=== PATIENT | female | born 1935 | race Caucasian/White ===

== ENCOUNTER 2017-03-18 15:33 | Emergency (ER) | payer MEDICARE, OTHER ==
--- NOTE | 2017-03-18 16:38 | ED Physician Documentation ---
PD HPI FOCAL NEURO - Stated complaint Stated Complaint: STROKE LIKE SYMPTOMS - Chief complaint Chief Complaint: Neuro - History obtained from History obtained from: Patient, Family - History of Present Illness Timing - onset: Other (Relatively healthy 81-year-old woman with history of hypertension. She has had 3 episodes today where she was speaking word salad briefly and then stared off into space. During 1 of the episodes she said she had chills. These episodes lasted at most minutes. She is amnestic to the events themselves. She feels okay now but does do admit to urinary frequency.) Review of Systems Constitutional: reports: Chills. 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 - Present Medications Home Medications: Ambulatory Orders Medication Instructions Recorded Confirmed Acetaminophen [Tylenol] 2 tab PO Q6HR PRN 05/14/16 03/18/17 Ascorbic Acid [Vitamin C] 2,000 tab PO DAILY 05/14/16 03/18/17 Gemfibrozil [Lopid] 1 tab PO DAILY 05/14/16 03/18/17 Multivitamin [Multivitamins] 1 cap PO DAILY 05/14/16 03/18/17 Omeprazole [PriLOSEC] 1 cap PO DAILY 05/14/16 03/18/17 Verapamil ER [Calan SA] 180 mg PO DAILY 05/14/16 03/18/17 Levofloxacin [Levaquin] 250 mg PO DAILY #3 tablet 03/18/17 Losartan [Cozaar] 25 mg PO DAILY 03/18/17 03/18/17 - Allergies Allergies/Adverse Reactions: Allergies Allergy/AdvReac Type Severity Reaction Status Date / Time Penicillins Allergy Hives Verified 05/14/16 01:12 Sulfa (Sulfonamide Allergy Hives Verified 05/14/16 01:12 Antibiotics) - Social History Does the pt smoke?: No Smoking Status: Never smoker Does the pt drink ETOH?: No Does the pt have substance abuse?: No - Immunizations Immunizations are current?: Yes PD ED PE NORMAL - Vitals Vital signs reviewed: Yes (Initial pulse oximetry was documented erroneously) - General General: Alert and oriented X 3, No acute distress - HEENT HEENT: PERRL, EOMI, Other (She has a left facial droop with periorbital spasm which she says is chronic and she has received Botox injections for.) - Neck Neck: Supple, no meningeal sign, No bony TTP - Cardiac Cardiac: RRR, No murmur - Respiratory Respiratory: No respiratory distress, Clear bilaterally - Abdomen Abdomen: Soft, Non tender - Derm Derm: Normal color, Warm and dry - Extremities Extremities: No deformity, No tenderness to palpate - Neuro Neuro: Alert and oriented X 3, No motor deficit, No sensory deficit, Normal speech - Psych Psych: Normal mood, Normal affect NIHSS - Time Time: 16:25 - Level of Consciousness Level of consciousness: (0) Alert, Keenly responsive LOC Questions: (0) Answers both Q's correct LOC Commands: (0) Performs both correctly - Gaze Best Gaze: (0) Normal - Visual Visual: (0) No loss - Facial Palsy Facial Palsy: (0) Normal, symmetrical movement (She has a pretty significant facial droop on the left with periorbital spasm but this is all chronic so I am documenting it is 0.) - Motor Arms (both separate) Motor Arm (right): (0) No drift Motor Arm (left): (0) No drift - Motor Legs (both separate) Motor Leg (right): (0) No drift Motor Leg (left): (0) No drift - Limb Ataxia Limb Ataxia: (0) Absent - Sensory Sensory: (0) Normal - Best Language Best Language: (0) No aphasia - Dysarthria Dysarthria: (0) Normal - Extinction and Inattention (formally neg Extinction and inattention: (0) No abnormality - Total Score/Results Total Score/Result: 0 Results - Vitals Vitals: Vital Signs - 24 hr 03/18/17 03/18/17 15:36 16:20 Temperature 36.7 C Heart Rate 83 Respiratory 20 Rate Blood Pressure 133/70 H O2 Saturation 81 L 96 Oxygen O2 Source Room air - EKG (time done) 1708 Rate: Rate (enter#) (74) Rhythm: NSR [place]: Normal Intervals: Normal PA QRS: Normal Ischemia: Normal ST segments Computer interpretation: Agree with computer - Labs Labs: Laboratory Tests 03/18/17 03/18/17 03/18/17 16:41 17:04 17:04 WBC 7.0 RBC 4.53 Hgb 13.0 Hct 37.5 MCV 82.7 MCH 28.6 MCHC 34.6 RDW 13.3 Plt Count 116 L MPV 8.4 Neut # 5.1 Lymph # 1.3 L Rice # 0.4 Eos # 0.1 Baso # 0.1 Absolute Nucleated RBC 0.00 Nucleated RBCs 0.0 Sodium 135 Potassium 4.4 Chloride 99 L Carbon Dioxide 28 Anion Gap 8.0 BUN 24 H Creatinine 0.7 Estimated GFR (MDRD) 80 L Glucose 112 H Calcium 9.5 Total Bilirubin 0.3 AST 19 ALT 25 Alkaline Phosphatase 61 Total Protein 7.2 Albumin 4.0 Globulin 3.2 Albumin/Globulin Ratio 1.3 Lipase 28 Urine Color YELLOW Urine Clarity CLEAR Urine pH 6.0 Ur Specific [place] 1.020 Urine Protein NEGATIVE Urine Glucose (UA) NEGATIVE Urine Ketones NEGATIVE Urine Occult Blood NEGATIVE Urine Nitrite NEGATIVE Urine Bilirubin NEGATIVE Urine Urobilinogen 0.2 (NORMAL) Ur Leukocyte Esterase SMALL H Ur Microscopic Review NOT INDICATED Urine Culture Comments NOT INDICATED PD MEDICAL DECISION MAKING - ED course ED course: 81-year-old woman with a few episodes of word salad today and amnesia. Normal exam here. Workup demonstrates mild evidence of UTI. She strongly wanted to go home. She lives quite close to the hospital. agreeable and will bring her back for further episodes. Encouraged follow-up with a neurologist. Departure - Departure Disposition: 01 Home, Self Care Clinical Impression: Cystitis Altered mental status Qualifiers: Altered mental status type: disorientation Qualified Code(s): R41.0 - Disorientation, unspecified Condition: Good Record reviewed to determine appropriate education?: Yes Instructions: ED UTI Cystitis Female Follow-Up: Molina Barrios MD [Physician No Access] - Rajinder Norwood MD [Physician No Access] - Sara Gee MD [Credentialed Staff Provider] - Prescriptions: Levofloxacin [Levaquin] 250 mg PO DAILY #3 tablet Comments: RETURN IF WORSE OR FOR RECURRENT SYMPTOMS. FOLLOWUP WITH A NEUROLOGIST CARLOS
[2017-03-18 17:10] LABS: BASOPHILS # (AUTO) 0.1 10^3/uL (0.0-0.1); BASOPHILS % (AUTO) 0.9 %; EOSINOPHILS # (AUTO) 0.1 10^3/uL (0.0-0.7); HCT - HEMATOCRIT 37.5 % (37.0-47.0); LYMPHOCYTES # (AUTO) 1.3 10^3/uL (1.5-3.5); LYMPHOCYTES % (AUTO) 18.1 %; MEAN CORPUSCULAR HEMOGLOBIN 28.6 pg (27.0-31.0); MEAN CORPUSCULAR HGB CONC 34.6 g/dL (32.0-36.0); MEAN CORPUSCULAR VOLUME 82.7 fL (81.0-99.0); MEAN PLATELET VOLUME 8.4 fL (7.9-10.8); MONOCYTES # (AUTO) 0.4 10^3/uL (0.0-1.0); MONOCYTES % (AUTO) 5.6 %; NEUTROPHILS # (AUTO) 5.1 10^3/uL (1.5-6.6); NEUTROPHILS % (AUTO) 73.4 %; RED BLOOD COUNT 4.53 10^6/uL (4.20-5.40); RED CELL DISTRIBUTION WIDTH 13.3 % (12.0-15.0)
[2017-03-18 17:12] LABS: BILIRUBIN,URINE NEGATIVE (NEGATIVE)
[2017-03-18 17:14] LABS: UA CHARGE (STRIP ONLY) YES
[2017-03-18 17:17] LABS: UR CULTURE IF IND NOT INDICATED
--- NOTE | 2017-03-18 17:20 | CT Preliminary Report ---
Exam: CT Head W/O IMPRESSION: Generalized age-related cortical atrophic changes without evidence of acute intracranial abnormality. [facility] SITE ID: [id number]
[2017-03-18 17:23] LABS: ALBUMIN/GLOBULIN RATIO 1.3 (1.0-2.2); BILIRUBIN,TOTAL 0.3 mg/dL (0.2-1.0); CALCIUM 9.5 mg/dL (8.5-10.3); CREATININE 0.7 mg/dL (0.4-1.0); POTASSIUM 4.4 mmol/L (3.5-5.0); TOTAL PROTEIN 7.2 g/dL (6.7-8.2)
--- NOTE | 2017-03-18 17:23 | CT Report ---
EXAM: CT HEAD EXAM DATE: 03/18/2017 04:56 PM. CLINICAL HISTORY: Altered, ?TIAs. COMPARISON: None. TECHNIQUE: Multiaxial CT images were obtained from the foramen magnum to the vertex. IV contrast: Non e. Reformats: Coronal. In accordance with CT protocol optimization, one or more of the following dose reduction techniques w ere utilized for this exam: automated exposure control, adjustment of mA and/or KV based on patient s ize, or use of iterative reconstructive technique. FINDINGS: Parenchyma: No intraparenchymal hemorrhage. No evidence of mass, midline shift, or CT findings of acu te infarction. Stephens-white differentiation is distinct. 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 Extraaxial Spaces: Normal for age. No subdural or epidural collections identified. Ventricles: The ventricles and cortical sulci are enlarged, consistent with age-related tissue loss. Sinuses: Imaged paranasal sinuses, orbits, and mastoids show no significant abnormality. Bones: No evidence of fracture or calvarial defect. Other: Diffuse chronic microangiopathic white matter changes are evident. IMPRESSION: Generalized age-related cortical atrophic changes without evidence of acute intracranial abnormality. [facility] Referring Provider Line: [phone] SITE ID: [id number]
[2017-03-18] MEDS ORDERED: levoFLOXacin 250 MG TABLET PO STA (17:42)
[2017-03-18] MEDS ORDERED: levoFLOXacin 250 MG TABLET ONE (17:59)
[2017-03-18 18:16] VITALS: BP 139/62
== END 2017-03-18 18:15 | disposition home or self-care (01) ==
LOC: ED 15:33
DX: N30.90 Cystitis, unspecified without hematuria (principal); R41.0 Disorientation, unspecified; I10 Essential (primary) hypertension; E11.9 Type 2 diabetes mellitus without complications
CPT/HCPCS: 36415; 70450; 80053; 81003; 83690; 85025; 93005; 99282; 99284; A9270; 81001; 87086

== ENCOUNTER 2017-03-18 21:39 | Observation (INO) | payer MEDICARE ==
--- NOTE | 2017-03-18 22:03 | ED Physician Documentation ---
PD HPI FOCAL NEURO - Stated complaint Stated Complaint: WORSENING AMS - Chief complaint Chief Complaint: Neuro - History obtained from History obtained from: Patient - History of Present Illness Timing - onset: Other (Seen by me earlier in the day for episodic word salad, unintelligible speech with amnestic episodes. She wanted to go home, however has had 2 more episodes since discharge this afternoon and brought back by family for further evaluation. Patient is asymptomatic on my evaluation and without recollection of the events.) Review of Systems Ten Systems: 10 systems reviewed and negative Constitutional: denies: Fever, Chills Eyes: denies: Loss of vision, Decreased vision Ears: denies: Loss of hearing, Ear pain Nose: denies: Rhinorrhea / runny nose, Congestion Throat: denies: Dental pain / toothache, Oral lesions / sores Cardiac: denies: Chest pain / pressure, Palpitations Respiratory: denies: Dyspnea, Cough GI: denies: Abdominal Pain, Nausea : denies: Dysuria, Frequency PD PAST MEDICAL HISTORY - Past Medical History Past Medical History: Yes Cardiovascular: Hypertension, Atrial fibrillation Endocrine/Autoimmune: Type 2 diabetes - Past Surgical History 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 - Present Medications Home Medications: Ambulatory Orders Medication Instructions Recorded Confirmed Acetaminophen [Tylenol] 2 tab PO Q6HR PRN 05/14/16 03/18/17 Ascorbic Acid [Vitamin C] 2,000 tab PO DAILY 05/14/16 03/18/17 Gemfibrozil [Lopid] 1 tab PO DAILY 05/14/16 03/18/17 Multivitamin [Multivitamins] 1 cap PO DAILY 05/14/16 03/18/17 Omeprazole [PriLOSEC] 1 cap PO DAILY 05/14/16 03/18/17 Verapamil ER [Calan SA] 180 mg PO DAILY 05/14/16 03/18/17 Levofloxacin [Levaquin] 250 mg PO DAILY #3 tablet 03/18/17 03/18/17 Losartan [Cozaar] 25 mg PO DAILY 03/18/17 03/18/17 - Allergies Allergies/Adverse Reactions: Allergies Allergy/AdvReac Type Severity Reaction Status Date / Time Penicillins Allergy Hives Verified 05/14/16 01:12 Sulfa (Sulfonamide Allergy Hives Verified 05/14/16 01:12 Antibiotics) - Social History Does the pt smoke?: No Smoking Status: Never smoker Does the pt drink ETOH?: No Does the pt have substance abuse?: No - Family History Family history: reports: Non contributory - Immunizations Immunizations are current?: Yes - POLST Patient has POLST: No PD ED PE NORMAL - Vitals Vital signs reviewed: Yes - General General: Alert and oriented X 3, No acute distress - HEENT HEENT: PERRL, EOMI - Neck Neck: Supple, no meningeal sign, No bony TTP - Cardiac Cardiac: RRR, No murmur - Respiratory Respiratory: No respiratory distress, Clear bilaterally - Abdomen Abdomen: Soft, Non tender - Extremities Extremities: No deformity, No tenderness to palpate - Neuro Neuro: Alert and oriented X 3, No motor deficit, No sensory deficit, Normal speech - Psych Psych: Normal mood, Normal affect NIHSS - Time Time: 21:55 - Level of Consciousness Level of consciousness: (0) Alert, Keenly responsive LOC Questions: (0) Answers both Q's correct LOC Commands: (0) Performs both correctly - Gaze Best Gaze: (0) Normal - Visual Visual: (0) No loss - Facial Palsy Facial Palsy: (0) Normal, symmetrical movement (Continued Left facial droop and spasm, score as zero b/c chronic per pt.) - Motor Arms (both separate) Motor Arm (right): (0) No drift Motor Arm (left): (0) No drift - Motor Legs (both separate) Motor Leg (right): (0) No drift Motor Leg (left): (0) No drift - Limb Ataxia Limb Ataxia: (0) Absent - Sensory Sensory: (0) Normal - Best Language Best Language: (0) No aphasia - Dysarthria Dysarthria: (0) Normal - Extinction and Inattention (formally neg Extinction and inattention: (0) No abnormality - Total Score/Results Total Score/Result: 0 Results - Vitals Vitals: Vital Signs - 24 hr 03/18/17 03/18/17 21:47 22:15 Temperature 36.5 C Heart Rate 87 80 Respiratory 19 20 Rate Blood Pressure 159/72 H 158/73 H O2 Saturation 95 95 Oxygen O2 Source Room air PD MEDICAL DECISION MAKING - ED course ED course: 81-year-old woman with Continued episodes of a aphasia with amnesia. Given recurrence I spoke with Dr. 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 Spoke with Dr Melvin for obs at 0 Departure - Departure Disposition: ED Place in Observation Clinical Impression: Seizure Altered mental status Qualifiers: Altered mental status type: disorientation Qualified Code(s): R41.0 - Disorientation, unspecified Condition: Stable
[2017-03-18] MEDS ORDERED: levETIRAcetam INJ 1,500 MG in SODIUM CHLORIDE 0.9% 100ML 100 ML IV STA (22:13)
[2017-03-18] MEDS ORDERED: SODIUM CHLORIDE 0.9% MINIBAG 100 ML IV ONE (22:19)
[2017-03-18] MEDS ORDERED: ONDANSETRON 4 MG/2 ML VIAL IVP PRN ×2 (22:34→23:31)
[2017-03-18] MEDS ORDERED: SODIUM CHLORIDE FLUSH 0.9% 10 ML SYRINGE IVP PRN ×2 (22:34→23:31)
[2017-03-18] MEDS ORDERED: ACETAMINOPHEN 325 MG TABLET PO PRN ×2 (22:34→23:31)
[2017-03-18] MEDS ORDERED: ONDANSETRON ODT 4 MG TABLET TL PRN ×2 (22:34→23:31)
[2017-03-18] MEDS ORDERED: PROCHLORPERAZINE 10 MG/2 ML VIAL IVP PRN ×2 (22:34→23:31)
[2017-03-18] MEDS ORDERED: HYDROcod/ACETAM 5/325 MG TABLET PO PRN ×2 (22:34→23:31)
[2017-03-19] MEDS ORDERED: SODIUM CHLORIDE FLUSH 0.9% 10 ML SYRINGE IVP SCH ×2 (06:00)
--- NOTE | 2017-03-19 07:09 | DISCHARGE SUMMARY ---
"Discharge Summary Admit Date: 03/18/17 Discharge Date: 03/19/17 Discharging Provider: Domi Mcclelland APRN Primary Care Provider: Chandan Cavazos Code Status: Attempt Resuscitation Condition at Discharge: Good Discharge Disposition: 01 Home, Self Care - DIAGNOSES Admission Diagnoses: 1. Unspecified convulsions 2. 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 History of Left facial hemispasm 4. Personal hisotry of traumatic brain injury 5. Urinary tract infection, site unspecified. Discharge Diagnoses with Status of Each Condition: 1. Unspecified convulsions, possible seizure 2. 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 History of Left facial hemispasm 4. Personal hisotry of traumatic brain injury 5. Urinary tract infection, site unspecified. - HPI History of Present Illness: Patient came to the ER for episodic word salad, unintelligible speech with amnestic episodes. Patient did not want to be admitted, however has had 2 more episodes since discharge this afternoon and brought back to the ER by family for further evaluation. Patient was admitted for further evaluation and new onset seizure activity. Her head CT was negative for acute process. - CONSULTS | PROCEDURES Consultations: neurology via telehealth service Procedures: MRI with impression pending at discharge for possible CVA and Seizures - HOSPITAL COURSE Hospital Course: Fransico is an 81-year-old woman with Continued episodes of a aphasia with amnesia. Since patient continued to have recurrence ER recommended admission into observation after speaking with Dr. 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 Patient did have an MRI and showed no acute hemorrhagic event however could be potensial for metastatic disease or process given the new onset seizures. MRI results were reviewed and family tried to be contacted regarding results. Results also available to neurologist followup appointment that was given to the family at discharge. Patient continued with diabetic diet and accuchecks with sliding scale insulin. She received evaluation by PT and OT.She was on vitamin D supplementation and level checked. She was given a prescription for Keppra at discharge along with referral to Neurology. Family was to take patient home and monitor her this evening. She was instructed to return to the ER if symptoms worsen or if she has chest pain or shortness of breath. Both patient and family verbally understood instructions. - ALLERGIES Allergies/Adverse Reactions: Allergies Allergy/AdvReac Type Severity Reaction Status Date / Time Penicillins Allergy Hives Verified 05/14/16 01:12 Sulfa (Sulfonamide Allergy Hives Verified 05/14/16 01:12 Antibiotics) - MEDICATIONS Home Medications: Ambulatory Orders Medication Instructions Recorded Confirmed Acetaminophen [Tylenol] 2 tab PO Q6HR PRN 05/14/16 03/18/17 Ascorbic Acid [Vitamin C] 2,000 tab PO DAILY 05/14/16 03/18/17 Gemfibrozil [Lopid] 1 tab PO DAILY 05/14/16 03/18/17 Multivitamin [Multivitamins] 1 cap PO DAILY 05/14/16 03/18/17 Omeprazole [PriLOSEC] 1 cap PO DAILY 05/14/16 03/18/17 Verapamil ER [Calan SA] 180 mg PO DAILY 05/14/16 03/18/17 Losartan [Cozaar] 25 mg PO DAILY 03/18/17 03/18/17 Levofloxacin [Levaquin] 250 mg PO DAILY #3 tablet 03/19/17 levETIRAcetam [Keppra] 1,500 mg PO BID #120 tablet 03/19/17 - PHYSICAL EXAM AT DISCHARGE General Appearance: positive: No acute distress, Alert Eyes Bilateral: positive: PERRL, EOMI, Other (mild left eye spasm) ENT: positive: ENT inspection nml, Pharynx nml, No signs of dehydration Neck: positive: Thyroid nml, No JVD, Trachea midline Respiratory: positive: Chest non-tender, No respiratory distress, Breath sounds nml Cardiovascular: positive: Regular rate & rhythm, No murmur, No gallop Peripheral Pulses: positive: 2+ Abdomen: positive: Non-tender, No organomegaly, Nml bowel sounds, No distention Rectal: negative: Hemorrhoid Back: positive: Nml inspection. negative: CVA tenderness (R) Skin: positive: Color nml, No rash, Warm, Dry Extremities: positive: Non-tender, Full ROM, Nml appearance, No pedal edema Neurologic/Psychiatric: positive: Oriented x3, CN's nml (2-12), Motor nml, Sensation nml, Mood/affect nml - LABS Result Diagrams: 03/19/17 08:35 03/19/17 08:35 Other Lab Results: Abnormal Lab Results 03/19/17 03/19/17 08:35 08:35 Plt Count 105 10^3/uL L 10^3/uL (130-450) Glucose 139 mg/dL H mg/dL (70-100) - DIAGNOSTIC IMAGING Diagnostic Imaging Results: Prelim report reviewed Diagnostic Imaging Results Comments: MRI with no acute process in the brain. - FOLLOW UP Follow Up: Patient was instructed to followup with neurology and primary care provider within 1 week of discharge. Patient verbally understood instructions given and was to be taken home with family. vital signs were stable at discharge."
--- NOTE | 2017-03-19 07:09 | Discharge Plan ---
Discharge Plan Disposition: Home, Self Care Condition: Good Prescriptions: levETIRAcetam [Keppra] 1,500 mg PO BID #120 tablet Levofloxacin [Levaquin] 250 mg PO DAILY #3 tablet Diet: Regular Activity Restrictions: Activity as Tolerated Shower Restrictions: No Assistance Devices: Walker Weight Bearing: Full Weight Instruction Topics: Epilepsy Seizures, ED Seizure New Onset Unk Cause Additional Instructions or Follow Up instructions: Please continue to take your home medications as prescribed. You will need to take the Keppra twice a day exactly as prescribed. This medication is for seizure activity. Avoid alcohol while on the medication. Make sure to drink alot of water throughout the day since the medications can make you dehydrated. Avoid soda and limit caffeine. Return to the normal daily diet you were on at home Get plenty of sleep at night. It is best to have someone with you at night while the seizures are not specified at this time Try to get daily exercise. Walking is a good way to help improve your mood and overall wellbeing. Please return to the ER or call 911 if your experience symptoms again or have chest pain or shortness of breath. You will need to make an appointment with the neurologist this week and be seen as soon as possible. You will need an EEG and further evaluation for frontal lobe seizures No Smoking: If you smoke, Please STOP! Call for help. Follow-up with: Chandan Cavazos MD [Primary Care Provider] -
[2017-03-19 09:00] LABS: BASOPHILS # (AUTO) 0.1 10^3/uL (0.0-0.1); BASOPHILS % (AUTO) 0.9 %; EOSINOPHILS # (AUTO) 0.3 10^3/uL (0.0-0.7); EOSINOPHILS % (AUTO) 4.2 %; HCT - HEMATOCRIT 37.1 % (37.0-47.0); HGB - HEMOGLOBIN 12.8 g/dL (12.0-16.0); LYMPHOCYTES # (AUTO) 1.5 10^3/uL (1.5-3.5); LYMPHOCYTES % (AUTO) 23.2 %; MEAN CORPUSCULAR HEMOGLOBIN 28.5 pg (27.0-31.0); MEAN CORPUSCULAR HGB CONC 34.6 g/dL (32.0-36.0); MEAN CORPUSCULAR VOLUME 82.2 fL (81.0-99.0); MEAN PLATELET VOLUME 8.9 fL (7.9-10.8); MONOCYTES # (AUTO) 0.4 10^3/uL (0.0-1.0); MONOCYTES % (AUTO) 6.9 %; NEUTROPHILS # (AUTO) 4.2 10^3/uL (1.5-6.6); NEUTROPHILS % (AUTO) 64.8 %; RED BLOOD COUNT 4.51 10^6/uL (4.20-5.40); RED CELL DISTRIBUTION WIDTH 13.3 % (12.0-15.0); UNCORRECTED WHITE BLOOD COUNT 6.5 x10^3/uL; WHITE BLOOD COUNT 6.5 x10^3/uL (4.8-10.8)
[2017-03-19] MEDS ORDERED: levETIRAcetam 250 MG TABLET PO SCH ×2 (09:00)
[2017-03-19] MEDS ORDERED: POLYETHYLENE GLYCOL 3350 17 GM PACKET PO SCH ×2 (09:00)
[2017-03-19 09:14] LABS: ALBUMIN/GLOBULIN RATIO 1.2 (1.0-2.2); BILIRUBIN,TOTAL 0.7 mg/dL (0.2-1.0); CALCIUM 9.4 mg/dL (8.5-10.3); CREATININE 0.6 mg/dL (0.4-1.0); MAGNESIUM 1.8 mg/dL (1.7-2.8); TOTAL PROTEIN 6.8 g/dL (6.7-8.2)
[2017-03-19 09:44] VITALS: BP 112/74
--- NOTE | 2017-03-19 12:24 | MRI Preliminary Report ---
Exam: MRI Brain W/O Impression: 1. Age appropriate senescent change. 2. A mild to moderate amount of white matter disease is identified as described. The findings are rel atively nonspecific, however, this most likely represents chronic microangiopathy. 3. Geographic area of encephalomalacia, posterior left cerebellum as described. The findings are cons istent with the sequela of remote, embolic type ischemic infarction. 4. No other significant intracranial findings on this unenhanced brain MRI. Ventricular, no evidence of infarction, hemorrhage, space-occupying mass lesion or other acute intracranial abnormality. Comment: The possibility of intracranial metastatic disease (a potential cause for seizures) cannot be exclude d on this examination performed without IV contrast. SITE ID: [id number]
--- NOTE | 2017-03-19 13:20 | MRI Report ---
MRI BRAIN WITHOUT CONTRAST EXAM DATE: 03/19/2017. INDICATION: 81-year-old female with new seizures. Please assess. COMPARISON: Head CT 03/18/2017. TECHNIQUE: 1. T1 sagittal and fat-saturated T2 coronal. 2. Axial T1 MP RAGE, FLAIR, T2, T2* and DWI. FINDINGS: There is mild, generalized prominence of the cerebral cortical sulci and third and lateral ventricles , considered well within normal limits for stated age. No hydrocephalus. A mild to moderate amount of white matter disease is identified in the supratentorial brain, manifest ed as focal and confluent T2 hyperintensities that are scattered throughout the periventricular, deep and subcortical white matter bilaterally. A frontoparietal distribution predominates. In addition, t here is involvement of the almeida radiata bilaterally. A few small T2 hyperintensities are demonstrat ed in the wero bilaterally. There is a geographic area of encephalomalacia in posterior left cerebell um, consistent with the sequela of remote, amyloid type infarction. This is in the left PICA territor y. Signal intensity of cortex and white matter is otherwise unremarkable. Flow voids are demonstrated in the main intracranial arteries. No abnormal diffusion restriction is d emonstrated. No evidence of acute or chronic hemorrhage on T2* GRE sequence. No abnormal extra-axial fluid collection. No mass effect or midline shift. There is very limited evaluation of the hippocampi. Artifact on fat-saturated T2 sequence limits asse ssment. However, on coronal reformations for T1 MP RAGE axial sequence, the hippocampi appear symmetr ic in size. No obvious, abnormal T2/FLAIR hyperintensity is seen in either hippocampus to suggest the presence of gliosis. Limited evaluation of the orbits reveals no gross pathology. A mucous retention cyst is identified in the alveolar recess of the right maxillary sinus. There is m ucosal thickening in a few left-sided ethmoid air cells. The paranasal sinuses are otherwise clear. N o air-fluid level is demonstrated. No significant mastoid or middle ear effusion is identified. Marrow signal intensity in the regional skeletal structures is unremarkable. IMPRESSION: 1. Age-appropriate senescent change. 2. A mild to moderate amount of white matter disease is identified as described. The findings are rel atively nonspecific; however, this most likely represents chronic microangiopathy. 3. Geographic area of encephalomalacia, posterior left cerebellum, as described, consistent with the sequela of remote, embolic type ischemic infarction. 4. No other significant intracranial findings on this unenhanced brain MRI. In particular, no evidenc e of infarction, hemorrhage, space-occupying mass lesion or other acute intracranial abnormality. COMMENT: The possibility of intracranial metastatic disease (a potential cause for seizures) cannot be exclude d on this examination performed without IV contrast. Referring Provider Line: [phone] SITE ID: [id number]
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
== END 2017-03-19 12:54 | disposition home or self-care (01) ==
LOC: ED 21:39 → MS 22:34 → ED 23:15
PROVIDERS: ADMIT Specialist; ATTEND Nurse Practitioner
DX: R56.9 Unspecified convulsions (principal); E11.9 Type 2 diabetes mellitus without complications; G25.2 Other specified forms of tremor; R29.810 Facial weakness; N39.0 Urinary tract infection, site not specified; I47.2 Ventricular tachycardia; I10 Essential (primary) hypertension; Z87.820 Personal history of traumatic brain injury; Z86.2 Personal history of diseases of the blood and blood-forming organs and certain disorders involving the immune mechanism; E78.5 Hyperlipidemia, unspecified; M67.972 Unspecified disorder of synovium and tendon, left ankle and foot
CPT/HCPCS: 36415; 70551; 80053; 83735; 85025; 96365; 99285; A9270; G0378

== ENCOUNTER 2017-03-24 09:26 | Outpatient (CLI) | payer MEDICARE, OTHER ==
[2017-03-24] MEDS ORDERED: GADOBUTROL 7.5 MMOL/7.5 ML VIAL IVP ONE (10:00)
--- NOTE | 2017-03-24 14:07 | MRI Report ---
MRI OF THE BRAIN WITH CONTRAST EXAM DATE: 03/24/2017 HISTORY: Seizure disorder. COMPARISON: MRI of the brain without contrast 03/19/2017. PROCEDURE: Gadolinium enhanced axial, coronal, and sagittal T1-weighted brain MRI imaging. 7.5 mm IV Gadavist. FINDINGS: Contrast opacification of the major dural venous sinuses is present as expected. No intracranial enhancing or space occupying mass. No abnormal white matter enhancement. No enhancing lesions in the regions of the internal auditory canals or pituitary fossa. Symmetric unremarkable ca vernous sinus enhancement. Compared to recent prior brain MRI, findings are grossly stable anatomically. IMPRESSION: No abnormal enhancement. Referring Provider Line: [phone] SITE ID: [id number]
== END 2017-03-24 09:27 | disposition home or self-care (01) ==
LOC: DI 09:26
PROVIDERS: ATTEND Internal Medicine
DX: G40.909 Epilepsy, unspecified, not intractable, without status epilepticus (principal)
CPT/HCPCS: 70552; A9585

== ENCOUNTER 2017-03-26 13:40 | Outpatient (CLI) | payer MEDICARE, OTHER | END 2017-03-26 13:41 | disposition home or self-care (01) | LOC: LAB.R 13:40 | PROVIDERS: ATTEND Internal Medicine | DX: N30.00 Acute cystitis without hematuria (principal) | CPT/HCPCS: 87086 ==

== ENCOUNTER 2018-02-27 17:07 | Outpatient (CLI) | payer MEDICARE, OTHER ==
--- NOTE | 2018-02-27 18:07 | XRAY Report ---
Procedure Date: 02/27/2018 Accession Number: [id number] / [id number] Procedure: XR - Chest 2 View X-Ray CPT Code: 38764 FULL RESULT: EXAM: CHEST RADIOGRAPHY EXAM DATE: 02/27/2018 05:22 PM. CLINICAL HISTORY: ADVENTITIOUS BREATH SOUNDS,COUGH. COMPARISON: CHEST 1 VIEW 05/14/2016. TECHNIQUE: 2 views. FINDINGS: Lungs/Pleura: No focal opacities evident. No pleural effusion. No pneumothorax. Normal volumes. Mediastinum: Heart and mediastinal contours are unremarkable. AP window calcified lymph node again noted. Other: Intraoperative fixation hardware right humerus again noted. IMPRESSION: No acute cardiopulmonary disease seen. RADIA
== END 2018-02-27 17:08 | disposition home or self-care (01) ==
LOC: DI 17:07
PROVIDERS: ATTEND Nurse Practitioner Primary Care
DX: R06.89 Other abnormalities of breathing (principal); R05 Cough
CPT/HCPCS: 71046

== ENCOUNTER 2019-06-11 10:32 | Emergency (ER) | payer MEDICARE, OTHER ==
--- NOTE | 2019-06-11 12:07 | XRAY Report ---
Reason: fall a week ago Procedure Date: 06/11/2019 Accession Number: [id number] / [id number] Procedure: XR - Toe(s) LT CPT Code: FULL RESULT: EXAM: LEFT TOE RADIOGRAPHY EXAM DATE: 06/11/2019 11:12 AM. CLINICAL HISTORY: Fall, pain and bruising COMPARISON: None. TECHNIQUE: 3 views. FINDINGS: Bones: Mild bony demineralization diffusely. Oblique mildly comminuted appearing fracture at the distal aspect of the proximal phalanx of the first toe. Mild displacement of approximately 2 mm. Articular extension appears to be present. Joints: No dislocation. Mild degenerative changes within the interphalangeal joints. Soft Tissues: No radiopaque foreign body. Soft tissue swelling. IMPRESSION: 1. Mildly comminuted appearing fracture at the distal aspect of the proximal phalanx of the first toe with mild displacement and there also appears to be articular extension at the interphalangeal joint. RADIA
--- NOTE | 2019-06-11 12:11 | XRAY Report ---
Reason: fall a week ago Procedure Date: 06/11/2019 Accession Number: [id number] / [id number] Procedure: XR - Shoulder 3 View LT CPT Code: FULL RESULT: EXAM: LEFT SHOULDER RADIOGRAPHY EXAM DATE: 06/11/2019 11:12 AM. CLINICAL HISTORY: Fall, pain COMPARISON: None. TECHNIQUE: 3 views. FINDINGS: Bones: Mild apparent bony demineralization. No acute fracture or focal osseous destruction identified. Joints: No dislocation. Moderate appearing acromioclavicular and glenohumeral degenerative changes, including narrowing, subchondral sclerosis and osteophyte formation. Mild chronic appearing change along the greater tuberosity. Soft tissues: The visualized lung appears clear. No radiopaque foreign body. IMPRESSION: 1. No definite acute fracture or dislocation identified. 2. Moderate appearing acromioclavicular and glenohumeral degenerative changes. RADIA
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
[2019-06-11 14:04] LABS: BILIRUBIN,URINE NEGATIVE (NEGATIVE); GLUCOSE, URINE (UA) NEGATIVE (NEGATIVE); KETONES,URINE (UA) NEGATIVE (NEGATIVE); LEUKOCYTE ESTERASE, URINE NEGATIVE (NEGATIVE); NITRITE,URINE NEGATIVE (NEGATIVE); OCCULT BLOOD,URINE NEGATIVE (NEGATIVE); PROTEIN,URINE NEGATIVE (NEGATIVE); UROBILINOGEN,URINE 0.2 (NORMAL) E.U./dL (NORMAL)
[2019-06-11 14:07] LABS: CLARITY,URINE CLEAR (CLEAR)
[2019-06-11 14:33] VITALS: BP 135/68
== END 2019-06-11 14:33 | disposition home or self-care (01) ==
LOC: ED 10:32
DX: S92.412A Displaced fracture of proximal phalanx of left great toe, initial encounter for closed fracture (principal); S43.402A Unspecified sprain of left shoulder joint, initial encounter; S50.00XA Contusion of unspecified elbow, initial encounter; S50.312A Abrasion of left elbow, initial encounter; S50.311A Abrasion of right elbow, initial encounter; W01.0XXA Fall on same level from slipping, tripping and stumbling without subsequent striking against object, initial encounter; R35.0 Frequency of micturition; I10 Essential (primary) hypertension; E11.9 Type 2 diabetes mellitus without complications
CPT/HCPCS: 73660; 81001; 81003; 87086; 93005; 99282; 99283

== ENCOUNTER 2023-05-04 08:00 | Outpatient (CLI) | payer MEDICARE, OTHER | END 2023-05-04 23:59 | disposition home or self-care (01) | LOC: LAB 08:00 | PROVIDERS: ATTEND Urology | DX: R32 Unspecified urinary incontinence (principal) | CPT/HCPCS: 87086; 87181 ==

== ENCOUNTER 2024-02-12 08:00 | Outpatient (CLI) | payer MEDICARE, OTHER | END 2024-02-12 23:59 | disposition home or self-care (01) | LOC: LAB 08:00 | PROVIDERS: ATTEND Urology | DX: R35.0 Frequency of micturition (principal) | CPT/HCPCS: 87077; 87086; 87181 ==

== ENCOUNTER 2024-02-29 12:11 | Outpatient (CLI) | payer MEDICARE, OTHER ==
[2024-02-29 12:48] LABS: CALCIUM 9.8 mg/dL (8.5-10.3); CREATININE 0.7 mg/dL (0.6-1.3); POTASSIUM 3.8 mmol/L (3.5-4.5)
== END 2024-02-29 12:12 | disposition home or self-care (01) ==
LOC: LAB 12:11
PROVIDERS: ATTEND Physician Assistant
DX: H81.10 Benign paroxysmal vertigo, unspecified ear (principal)
CPT/HCPCS: 36415; 80048